=== PATIENT | male | born 1950 | race Caucasian/White ===

== ENCOUNTER 2017-02-20 08:36 | Outpatient (CLI) | payer MEDICARE, BC ==
[~2017-02-20] VITALS: Ht 172.7 cm; Wt 103.6 kg
[2017-02-20 09:10] VITALS: BP 131/71; Ht 172.7 cm; Wt 103.6 kg
[2017-02-20 17:00] LABS: BASOPHILS 0.8 % (0-2); EOSINOPHILS 6.9 % (0-7); HEMATOCRIT 27.4 % (42.0-54.0); HEMOGLOBIN 7.8 g/dL (13.5-17.5); IMMATURE GRANULOCYTES 0.5 % (0-5); LYMPHOCYTES 32.5 % (15-50); MCHC 28.5 g/dL (31.0-37.0); MCV 68.5 fL (80.0-100.0); MEAN PLATELET VOLUME 9.7 fL (7.4-10.4); MONOCYTES 16.7 % (2-11); NEUTROPHILS 42.6 % (40-80); PLATELET COUNT 152 10x3/uL (130-400); RDW 19.6 % (11.5-14.5); WBC 6.1 10x3/uL (4.8-10.8)
[2017-02-20 17:01] LABS: MCH 19.5 pg (26.0-34.0)
--- NOTE | 2017-02-20 17:27 | NUR ---
1620--LAB CALLED TO COME DRAW POST TRANSFUSION CBC. MALOU WHEAT 1640--LAB DRAWN. MALOU WHEAT 1645--DISCHARGE INSTRUCTIONS GIVEN, PT VERBALIZES UNDERSTANDING. PT OFF UNIT VIA WC. MALOU WHEAT
== END 2017-02-20 16:45 | disposition home or self-care (01) ==
LOC: D.OPS 08:36
PROVIDERS: Family Medicine
DX: D64.9 Anemia, unspecified (principal)

== ENCOUNTER → 2019-03-09 10:08 | Outpatient (CLI) | payer MEDICARE, BC ==
[2017-02-20 09:10] VITALS: BMI 34.7
--- NOTE | 2019-03-11 08:54 | EC ---
PATIENT:LORAINE BACA DATE OF SERVICE: 03/09/19 SEX: M MEDICAL RECORD: [id number] DATE OF : 48 LOCATION:D[facility] AGE OF PATIENT: 68 ADMISSION DATE: 03/09/19 REFERRING PHYSICIAN: INTERPRETING PHYSICIAN: CRISTELA CARDONA MD ECHOCARDIOGRAM REPORT ECHO CHARGES 4 ECHO COMPLETE Date: 03/09/19 CLINICAL DIAGNOSIS: HTN/ HX OF MITRAL/TRICUSPID REGURG ECHOCARDIOGRAPHIC MEASUREMENTS (adult normal given) AC root (d.<3.7cm) 3.4 cm LV Septum d (<1.2 cm> 1.3 cm Valve Excursion 1.8 cm LV Septum (systole) 1.6 cm Left Atria (s.<4.0cm> 4.7 cm LVPW d(<1.2cm) 1.6 cm RV (d.<2.3cm) 4.0 cm LVPW (sytole) 2.0 cm LV diastole(<5.6CM) 5.2 cm MV E-F(>70mm/sec) cm LV systole 3.1 cm LVOT Diameter 2.2 cm MV exc.(>10mm) 1.3 cm Est.ejection fraction (50-75%) % DOPPLER: LVIT cm/sec A 124.0cm/sec E 97.0 cm/sec LA cm/sec RVSP 45 mmHg LVOT 120 cm/sec AOP1/2T m/s Asc. Ao 195 cm/sec RVOT 72 cm/sec RA cm/sec PA 134 cm/sec AV Gradient Peak 15.20mmHg AV Mean 8.91 mmHg AV Area 2.4 cm MV Gradient Peak 6.97 mmHg MV Mean 2.64 mmHg MV Area cm COMMENTS: Summer Associate: 2 EDUARDO SO Inspector Returned Materials: 3 Dr. Davis TAPE# PACS Pericardial Effusion N DATE OF SERVICE: Adequate 2-D echo, Color-Flow and Spectral Doppler, and M-mode LVH is present. LV internal dimension is normal. Wall motion is normal. EF is greater than or equal to 55%. Aortic valve is tricuspid. No evidence of stenosis on Doppler interrogation. Left atrium is dilated at 4.7 cm. Mitral valve shows no prolapse. Trace MR. Right-sided chambers are grossly normal. Trace TR. ECHOCARDIOGRAM REPORT [id number] LORAINE BACA TRANSINT:[id number] Voice Confirmation ID: [id number] DOCUMENT ID: [id number] CRISTELA CARDONA MD at 0854 CC: [id number] DICTATION DATE: 03/10/19 131 BULB BRANDER: 03/10/191920 DEP CLI 03/09/19 [facility] [address] [id number]
== END | disposition home or self-care (01) ==
LOC: D.HCCECHO 10:08
PROVIDERS: ATTEND Internal Medicine Interventional Cardiology
DX: I10 Essential (primary) hypertension (principal)